=== PATIENT | female | born 1960 | race African-American/Black ===

== ENCOUNTER 2020-05-07 08:20 | Emergency (ER) | payer MEDICAID ==
[~2020-05-07] VITALS: Ht 167.6 cm; Wt 73.0 kg
[2020-05-07 10:45] VITALS: BP 158/82
== END 2020-05-07 10:55 | disposition home or self-care (01) ==
LOC: ER 08:46
DX: M54.2 Cervicalgia (principal); M25.521 Pain in right elbow; M25.511 Pain in right shoulder; I10 Essential (primary) hypertension
CPT/HCPCS: 72040; 73030; 73080; 99284